=== PATIENT | male | born 1975 | race Caucasian/White ===

== ENCOUNTER 2017-07-07 10:30 | Day surgery (SDC) | payer BC, MEDICAID ==
[~2017-07-07 10:30] MED LIST: FENTANYL 100MCG/2ML SOL ONE; LIDOCAINE HCL 1% MPF SOL ONE; PROPOFOL 10 MG/ML EMU IV ONE; ROCURONIUM BROMIDE 10 MG/ML SOL IV ONE; SUCCINYLCHOLINE CHLORIDE 20 MG/ML SOL IV ONE
[2017-07-07] MEDS ORDERED: BUPIVACAINE/EPI 0.5% 10 ML SOL INFIL ONE ×2 (10:48)
[2017-07-07] MEDS ORDERED: KETOROLAC TROMETHAMINE 30 MG/ML SOL ONE (11:37)
[2017-07-07 12:23] VITALS: BP 128/81; PULSE 68; RESP 18; TEMP 97; O2SAT 99
== END 2017-07-07 13:10 | disposition home or self-care (01) ==
LOC: SURG 10:30
PROVIDERS: ATTEND Surgery
DX: K64.8 Other hemorrhoids (principal); K64.4 Residual hemorrhoidal skin tags
CPT/HCPCS: 46260; 99001; J0330; J1885; J2001; J2704; J3010